=== PATIENT | male | born 1960 | race Caucasian/White ===

== ENCOUNTER 2019-08-01 20:06 | Emergency (ER) | payer OTHER, SELFPAY ==
--- NOTE | ~2019-08-01 | CT_ITS ---
EXAMINATION: CT brain wo con EXAM DATE: 08/01/2019 20:25 INDICATION: Fall. Right pupil dilated. TECHNIQUE: Spiral CT of the head was performed without contrast. Axial, coronal and sagittal images were reviewed. The dose-length product (DLP) for this examination was 605.33 mGy-cm. The exposure w as tailored according to patient size, and iterative reconstruction (ASIR) was used as additional dos e reduction technique. There is no prior study for comparison. FINDINGS: There is a hemorrhage in the middle of the yoav measuring 2.3 x 1.4 cm. No subarachnoid ext ension or hydrocephalus. No evidence of intraparenchymal brain mass lesion. No evidence of acute inf arction. There is no mass effect or midline shift. The ventricles are normal in size. There are no extra-axial collections. There are no acute calvarial fractures. The orbits are unremarkable. Ther e is large left frontal scalp hematoma. The visualized sinuses and mastoid air cells are well aerated . IMPRESSION: 1. Acute yoav hemorrhage. 2. Large left frontal scalp hematoma without underlying fracture. I discussed acute pontine hemorrhage with Jessika Petersen MD at 08/01/2019 20:21 SHANK PINNER. Reviewed, dictated and finalized at location A. K PINNER
--- NOTE | ~2019-08-01 | XR_ITS ---
EXAMINATION: XR chest ET placement EXAM DATE: 08/01/2019 20:59 INDICATION: Endotracheal tube placement. Pontine hemorrhage. TECHNIQUE: Portable AP frontal chest x-ray was obtained. There is no prior study for comparison. FINDINGS: Endotracheal tube tip is 3-4 centimeters above the yola (ideal range is between 2 to 5 cm ). Mild cardiomegaly and pulmonary vascular congestion. No confluent consolidation, pneumothorax or pleural effusion suspected. There are no osseous abnormalities identified. IMPRESSION: 1. ET tube in position. 2. Cardiomegaly, congestion. Reviewed, dictated and finalized at location A. SUIT GLUER
--- NOTE | 2019-08-01 20:07 | ED_ITS ---
I attest that this documentation has been prepared under the direction and in the presence of Jessika Petersen MD. 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 Per police[place] EMS for help of his sx. Pt pulled his van over on the side of the road and got out of his van. Pt slammed his head onto the pavement and he had his entire body length on the road. Pt's states the pt has a hx of CVA. Pt denies EtOH usage and drug usage. Pt was by himself whenever his sx started. Pt's spouse denies the pt being on anticoagulants. HPI is limited due to pt's clinical condition. complaint: suspected CVA [facility] Past Medical History Medical History (Updated 08/01/19 @ 20:24 by Lin Salazar) CVA (cerebrovascular accident) HTN (hypertension) Hyperlipidemia Surgical History Surgical History (Updated 08/01/19 @ 20:24 by Lin Salazar) No history of previous surgery Exam Cardio: Rate: regular rate Rhythm: regular rhythm Neuro: Other: Pt is able to move his right side with normal strength. Pt is able to lift side with gravity, but the left side is weaker.
--- NOTE | 2019-08-01 20:15 | ECG_ITS ---
Measurements Intervals [place] Rate: 65 P: 13 CO: 160 QRS: -17 QRSD: 137 T: 58 QT: 457 QTc: 476 Interpretive Statements SINUS RHYTHM WITH SINUS ARRHYTHMIA ATRIAL PREMATURE COMPLEX RIGHT BUNDLE BRANCH BLOCK BASELINE ARTIFACT- I, II, III, AVR, AVL, AVF ABNORMAL ECG Electronically Signed On 08-02-2019 6:58:43 COMMERCIAL MANAGEMENT ACCOUNTANT by Seymour Harris D.O.
[2019-08-01 20:18] VITALS: BP 203/113; PULSE 69; RESP 20; TEMP 36.7; O2SAT 98
[2019-08-01 20:22] VITALS: BP 203/113; PULSE 69; RESP 17; O2SAT 98
[2019-08-01 20:28] LABS: Basophils Absolute Auto 0.1 K/mm3 (0.0-0.1); Basophils Percent Auto 0.7 % (0.2-1.2); Eosinophils Absolute Auto 0.3 K/mm3 (0-0.3); Eosinophils Percent Auto 3.8 % (0-4.4); Hemoglobin 14.8 g/dL (14.0-18.0); Immature Granulocyte Absolute 0.02 K/mm3 (0.00-0.031); Immature Granulocyte Percent A 0.3 % (0-0.5); Lymphocytes Absolute Auto 2.07 K/mm3 (0.9-3.2); Lymphocytes Percent Auto 28.3 % (18.3-44.2); Mean Corpuscular HGB Conc 32.9 g/dl (32-36); Mean Corpuscular Hemoglobin 29.3 pg (26-34); Mean Corpuscular Volume 89.1 fl (80-100); Mean Platelet Volume 12.1 fl (7.4-10.4); Monocytes Absolute Auto 0.7 K/mm3 (0.1-0.6); Monocytes Percent Auto 9.4 % (2.6-8.5); Neutrophils Absolute Auto 4.2 K/mm3 (1.3-6.7); Neutrophils Percent Auto 57.5 % (45.5-73.1); Platelet Count Result 166 k/mm3 (150-375); Red Blood Count 5.05 M/mm3 (4.6-6.20); Red Cell Distribution Width 12.9 % (11.5-14.5); White Blood Count 7.3 K/mm3 (4.5-10.0)
--- NOTE | 2019-08-01 20:29 | PC.NURSE ---
Per patient , patient has no known drug allergies.
[2019-08-01] MEDS: niCARdipine 20 MG/200 ML 20 MG/200 ML BAG 50 MG IV CONT (20:32)
[2019-08-01 20:38] LABS: INR 0.9; Prothrombin Time 12.2 Seconds (11.1-14.7)
--- NOTE | 2019-08-01 20:38 | PC.NURSE ---
EDP Geldmacher in room at this time for intubation. 30mg Etomidate, 150mg succinylcholine per EDP Geldmacher being pushed at this time for rapid intubation. 3 - 30 mg Etomidate given 2044 - 150 mg succinylcholine given Size 8 ETT placed by EDP Geldmacher 24 at the lip C-collar still in place.
[2019-08-01 20:39] LABS: Partial Thromboplastin Time 25.6 SECONDS (22.3-36.8)
--- NOTE | 2019-08-01 20:39 | ED.NEUROSD ---
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 Per police[place] 911 whenever his sx started. Pt pulled his van over on the side of the road and he got out of his van. Pt fell flat on his face and hit his head onto the pavement. Pt had his entire body length on the road. Pt's states the pt has a hx of CVA. Police on scene did not note any evidence of drug or alcohol use or any other unusual circumstances. Pt was by himself whenever his sx started. Pt's spouse denies the pt being on anticoagulants. HPI is limited due to pt's clinical condition. Onset (ago): minute(s) On Anticoagulants: No Associated symptoms: other (limited due to pt's clinical condition) Related Data Allergies Allergy/AdvReac Type Severity Reaction Status Date / Time No Known Allergies Allergy Verified 08/01/19 20:34 Review of Systems Review of Systems: ROS unobtainable: unobtainable due to mental condition PMFSH Past Medical History Medical History (Updated 08/01/19 @ 20:57 by Jessika Petersen MD) CVA (cerebrovascular accident) HTN (hypertension) Hyperlipidemia Surgical History Surgical History (Updated 08/01/19 @ 20:54 by Lin Salazar) Surgical history unknown Social History Social History (Updated 08/01/19 @ 20:53 by Lin Salazar) Smoking status: Unknown if ever smoked Alcohol intake: never Substance use: never Exam Const: General: cooperative, alert and ill appearing Nutritional Appearance: well nourished Limitations: physical limitations (Slurred speech) HENMT: Head: hematoma left frontal Mouth: Yes lip normal and Yes moist mucous membranes Throat: posterior oropharynx normal Resp: Effort & Inspection: normal respiratory effort Auscultation: clear to auscultation bilaterally Cardio: Rate: regular rate Rhythm: regular rhythm GI: GI Palp: Yes Soft to palpation and No Tenderness to palpation present (GI) Auscultation: normal bowel sounds Back/Spine/Pelvis: Cervical Spine: collar present Skin: General skin exam: normal color Neuro: General: tone normal and moves all extremities Cranial nerves: Yes Equal, round and reactive pupils present and Yes Bilaterally intact EOM present Speech: Abnormal speech present garbled and slurred and No Expressive aphasia present Motor exam (neuro): Normal motor muscle tone present throughout, Abnormal motor strength present and Pronator motor function present pronator drift of left upper extremity Other: Pt is able to move his right side with normal strength. Pt is able to lift side with gravity, but the left side is weaker. Extrem: General: normal to inspection, full ROM and no clubbing, cyanosis or edema Psych: Mental Status: mental status grossly normal Affect: normal affect Attitude: cooperative Course Course Emergency Course: Patient presents to the emergency department as a stroke alert with additional head trauma noted. Patient with findings of intracranial hemorrhage in the yoav. Given the size and location of the hemorrhage, patient was intubated for airway protection due to high risk of decompensation during ground transport. Aeromedical services not flying due to inclement weather. Patient significantly hypertensive on arrival. Nicardipine drip initiated and being titrated towards a goal of 140 systolic. Patient initially given etomidate and succinylcholine for RSI. Patient subsequently given 100 mcg of fentanyl and 2 mg of Versed and started on propofol drip for sedation. Consultations Consultation #1: Discussed case with Dr. Aguero ([facility] Stroke Team). Accepts transfer. Request pt be sent to the ED. Date: 08/01
[2019-08-01 20:41] LABS: Alanine Aminotransferase 33 U/L (4-50); Albumin Level 4.2 g/dL (3.5-5.1); Alkaline Phosphatase 62 U/L (38-126); Aspartate Amino Transferase 32 U/L (17-59); Bilirubin,Total 0.7 mg/dL (0.2-1.3); Blood Urea Nitrogen 14 mg/dL (9-20); Calcium 8.8 mg/dL (8.4-10.2); Carbon Dioxide 30 mmol/L (22-30); Chloride 96 mmol/L (98-107); Estimated CRCL calculation 79 ml/min; Estimated Glomerular Filt Rate > 60; Glucose 111 mg/dL (75-110); Potassium 2.9 mmol/L (3.4-5.0); Sodium 136 mmol/L (137-145)
--- NOTE | 2019-08-01 20:41 | PC.NURSE ---
Called Wendy to transport patient to [facility]. Declined due to weather. [facility] crew that brought patient in cleared with their dispatch to transport patient to [facility].
[2019-08-01 20:45] VITALS: PULSE 74; RESP 19; O2SAT 98
[2019-08-01 20:46] VITALS: BP 246/164; PULSE 83; RESP 14; O2SAT 93
--- NOTE | 2019-08-01 20:48 | PC.NURSE ---
Per EDP Geldmacher, increase Cardene to 7.5mg.
[2019-08-01 20:54] VITALS: BP 168/99; PULSE 81; RESP 14; O2SAT 98
--- NOTE | 2019-08-01 20:57 | PC.NURSE ---
2053 2 mg IVP versed administered, 100 mcg Fentanyl IVP, 5 mcg/min of propofol running IV drip per PAULIE EDMeredith Contrerasr
[2019-08-01 21:01] LABS: Add Urine Microscopic? YES; Appearance Urine Clear (Clear); Bacteria Urine Trace /hpf; Bilirubin Urine Negative (Negative); Blood Urine 1+ (Negative); Color Urine Colorless (Yellow); Glucose Urine UA Negative (Negative); Ketones Urine Negative (Negative); Leukocyte Esterase Ur Negative LEU/UL (Negative); Nitrate Urine Negative (Negative); Protein Urine 2+ mg/dL (Negative); Specific Grav Ur 1.008 (1.001-1.035); Squamous Epithelial Cell Urine Rare /hpf (Few); Urobilinogen Urine Negative mg/dL (<2.0)
--- NOTE | 2019-08-01 23:00 | PC.NURSE ---
Per verbal order read-back via EDP Geldmacher, give 40mg Propofol bolus PRN by titrating pump while in route to [facility] to maintain sedation while patient is intubated. Patient began to breathe against tube, move extremities, reach for tube, and try and sit up. While in route administered via pump: 0 - 40mg Propofol given by pump 2132 - 40mg Propofol given by pump
--- NOTE | 2019-08-01 23:00 | PC.NURSE ---
Per verbal order read-back by EDP Trinity, increase Cardene drip 2.5mg/hr Q15 minutes to maintain blood pressure less than systolic of 140. Drip titrated to 12.5mg/hr upon arrival to [facility] ED.
== END 2019-08-01 21:08 | disposition short-term general hospital (02) ==
PROVIDERS: Emergency Provider Emergency Medicine
DX: I61.3 Nontraumatic intracerebral hemorrhage in brain stem (principal); I16.0 Hypertensive urgency; S00.03XA Contusion of scalp, initial encounter; E78.5 Hyperlipidemia, unspecified; I49.1 Atrial premature depolarization; I45.10 Unspecified right bundle-branch block; I51.7 Cardiomegaly; W18.39XA Other fall on same level, initial encounter
CPT/HCPCS: 31500; 36415; 51702; 70450; 80053; 81001; 85025; 85610; 85730; 93005; 96365; 99291; J2250; J2704; J3010

== ENCOUNTER 2019-12-05 12:55 | Outpatient (RCR) | payer OTHER, SELFPAY ==
[2019-12-05 13:00] VITALS: BMI 26.2
== END 2020-02-05 15:03 | disposition home or self-care (01) ==
LOC: ANHWOC 12:55
PROVIDERS: PCP Family Medicine; Visit Provider Family Medicine
DX: L89.329 Pressure ulcer of left buttock, unspecified stage (principal)
CPT/HCPCS: 99212; G0463

== ENCOUNTER 2020-01-07 13:23 | Outpatient (CLI) | payer OTHER, SELFPAY ==
--- NOTE | ~2020-01-07 | XR_ITS ---
MODIFIED ESOPHAGRAM HISTORY: Dysphagia following nontraumatic intracerebral hemorrhage. TECHNIQUE: Modified barium esophagram was performed on 01/07/2020. I administered fluoroscopy and perf ormed the exam with speech pathologist. Patient was seated for lateral fluoroscopic imaging for eliazar stion of thin liquids, pudding, solids and quantified amounts, followed by thin liquids in uncontroll ed amounts. This was recorded on tape. A single fluoroscopic spot image was also recorded. The DAP fo r this procedure was 1.87 Gycm2. The amount of fluoroscopy time used during this procedure was 2.6 mi nutes. FINDINGS: Oral stage: Premature spillage with uncoordinated lingual movement. Pharyngeal stage: Reduced laryngeal elevation and adduction with laryngeal penetration and aspiration which elicited a cough reflex. Trace residue at the piriform sinus. Cervical/esophageal stage: Adequate function. IMPRESSION: Oral and pharyngeal dysphagia with laryngeal penetration and aspiration. Please correlat e with speech pathologist findings and specific feeding recommendations. Reviewed, dictated and finalized at location A. IMPRESSION: Oral and pharyngeal dysphagia with laryngeal penetration and aspira tion. Please correlate with speech pathologist findings and specific feeding r ecommendations.
--- NOTE | 2020-01-07 15:01 | STOPEVAL ---
Modified Barium Swallow: Thank you for referring Humberto Rosenthal to [facility]. Attending Provider: DO SUMA Colunga Outpatient Evaluation Start: 01/07/20 14:49 Freq: Status: Active Protocol: Document 01/07/20 14:49 BECHERERT (Rec: 01/07/20 15:00 BECHERERT [email or web address]) Therapy Assessment Status Assessment Status Assessment Status Evaluation Outpatient Past Medical History Past Medical History Source of Past Medical History Family/Significant Other Neurological History Hx Cerebrovascular Accident (CVA) Yes: left side and brainstem Cardiovascular History Hx Hypercholesterolemia Yes Hx Hypertension Yes Respiratory History Hx Respiratory Disorders No Significant History Gastrointestinal History Hx Other Gastrointestinal Disorders Yes: incontinence from stroke Genitourinary History Hx Other Genitourinary Disorders Yes: incontinence from stroke Musculoskeletal History Hx Other Musculoskeletal Disorders Yes: from stroke Hematological History Hx Hematological Disorders No Significant History Endocrine History Hx Endocrine Disorders No Significant History HEENT History Hx HEENT Disorders No Significant History Integumentary History Hx Skin Disorders No Significant History Reproductive History Hx Reproductive Disorders No Significant History Psychosocial History Hx Psychiatric Disorders No Significant History Pain History History of Any Previous or Ongoing No Significant History Instance of Pain Anesthesia History Hx Anesthesia Reactions No Significant History Pain Assessment Timing of Pain Assessment Timing of Pain Assessment Assessment Self Report Self Report Pain Level 0 Pain Score Pain Score 0: Self Report Modified Barium Swallow Evaluation Recent Swallowing History Reports Dysphagia Yes Onset of Dysphagia after CVA August 01, 2019 History of Related Medical Diagnosis CVA Other Factors Impacting Dysphagia Neurological Impairment Reported Difficult Consistencies Thin Liquids,Solids Intake Method Prior to Swallow Oral Evaluation Diet Prior to Swallow Evaluation Minced and Moist, Level 5 Liquid Consistency Prior to Swallow Mildly Thick (2) Evaluation Consistency Solid Consistency Method of Presentation Spoon Oral Preparatory Symptoms Unable to Form Bolus Oral Preparatory Phase Comments difficulty formulating bolus Oral Phase Symptoms Uncontrolled Bolus Pharyngeal Phase Symptoms Laryngeal Penetration,Reduced Laryngeal Elevation Severity of Vallecular Residue None - 0% No Residue Severity of Pyriform Sinus Residue Trace - 1-5 % Trace Coating of the Mucosa 8 Point Laryngeal Penetration-Aspiration Material Enters Airway Below Scale Vocal Co
== END 2020-01-07 13:24 | disposition home or self-care (01) ==
LOC: ANHIMG 13:26
PROVIDERS: PCP Family Medicine; Visit Provider Family Medicine
DX: I61.3 Nontraumatic intracerebral hemorrhage in brain stem (principal); I69.191 Dysphagia following nontraumatic intracerebral hemorrhage
CPT/HCPCS: 92611

== ENCOUNTER 2020-04-15 13:21 | Outpatient (CLI) | payer OTHER, SELFPAY ==
--- NOTE | ~2020-04-15 | XR_ITS ---
MODIFIED ESOPHAGRAM HISTORY: Cerebral infarction. TECHNIQUE: Modified barium esophagram was performed on 04/15/2020. I administered fluoroscopy and perf ormed the exam with speech pathologist. Patient was seated for lateral fluoroscopic imaging for eliazar stion of thin liquids, pudding, solids and quantified amounts, followed by thin liquids in uncontroll ed amounts. This was recorded on tape. A single fluoroscopic spot image was also recorded. The DAP fo r this procedure was 2.2 Gycm2. The amount of fluoroscopy time used during this procedure was 2.8 min utes. FINDINGS: Oral stage: Slow mastication with leakage from the mouth and premature spillage to the piriform sinus . Pharyngeal stage: Reduced laryngeal elevation and abduction with both laryngeal penetration and aspir ation with thin and to lesser degree with nectar thick liquids. Cervical/esophageal stage: Adequate function. IMPRESSION: Oral and pharyngeal dysphagia with repeated aspiration with thin liquids. Please correla te with speech pathologist findings and specific feeding recommendations. Reviewed, dictated and finalized at location A. IMPRESSION: Oral and pharyngeal dysphagia with repeated aspiration with thin li quids. Please correlate with speech pathologist findings and specific feeding recommendations.
--- NOTE | 2020-04-16 14:39 | STOPEVAL ---
MODIFIED BARIUM SWALLOW: Thank you for referring Humberto Rosenthal to [facility] Attending Provider: DO SUMA Colunga Outpatient Evaluation ([facility]) Start: 04/15/20 16:46 Freq: Status: Discharge Protocol: Document 04/15/20 16:47 BECHERERT (Rec: 04/15/20 16:47 BECHERERT [email or web address]) Therapy Assessment Status Assessment Status Assessment Status Evaluation Outpatient Past Medical History Neurological History Hx Cerebrovascular Accident (CVA) Yes: left side and brainstem Cardiovascular History Hx Hypercholesterolemia Yes Hx Hypertension Yes Respiratory History Hx Respiratory Disorders No Significant History Gastrointestinal History Hx Other Gastrointestinal Disorders Yes: incontinence from stroke Genitourinary History Hx Other Genitourinary Disorders Yes: incontinence from stroke Musculoskeletal History Hx Other Musculoskeletal Disorders Yes: from stroke Hematological History Hx Hematological Disorders No Significant History Endocrine History Hx Endocrine Disorders No Significant History HEENT History Hx HEENT Disorders No Significant History Integumentary History Hx Skin Disorders No Significant History Reproductive History Hx Reproductive Disorders No Significant History Psychosocial History Hx Psychiatric Disorders No Significant History Pain History History of Any Previous or Ongoing No Significant History Instance of Pain Anesthesia History Hx Anesthesia Reactions No Significant History Prior Level of Function Home Setting Home Type House Living Situation With Spouse Mobility Assistive Devices (Used Last 3 Wheelchair, Manual Months) Prior Swallow Level Prior Diet Minced and Moist (Level 5 Diet ) Prior Liquid Consistency Mildly Thick (Level 2 Diet) Pain Assessment Timing of Pain Assessment Timing of Pain Assessment Assessment Self Report Self Report Pain Level 0 Pain Score Pain Score 0: Self Report Modified Barium Swallow Evaluation Recent Swallowing History Reports Dysphagia Yes Onset of Dysphagia since CVA in July 2019 History of Dysphagia No: not prior to CVA History of Related Medical Diagnosis CVA Reported Difficult Consistencies Thin Liquids,Solids Intake Method Prior to Swallow Oral Evaluation Diet Prior to Swallow Evaluation Minced and Moist, Level 5 Liquid Consistency Prior to Swallow Mildly Thick (2) Evaluation Consistency Mildly Thick Method of Presentation Spoon Oral Preparatory Symptoms Within Functional Limits Oral Phase Symptoms Within Functional Limits Pharyngeal Phase Symptoms Laryngeal Penetration,Reduced Laryngeal Elevation Severi
== END 2020-04-15 13:22 | disposition home or self-care (01) ==
PROVIDERS: PCP Family Medicine; Visit Provider Family Medicine
DX: I63.9 Cerebral infarction, unspecified (principal)
CPT/HCPCS: 92611

== ENCOUNTER 2020-09-15 09:09 | Outpatient (CLI) | payer OTHER, SELFPAY ==
--- NOTE | 2020-09-16 10:59 | WPDHOMESLEEP ---
Sleep Study - Home Unattended Date of Study: 09/15/20 Ordering Provider: Jose Josue DO Interpreting Provider: Meaghan Berry MD Home Sleep Study Type: Apnea Link Air Height: 1.8 m Weight: 77.111 kg Body Mass Index: 23.7 Neck Circumference (inches): 17.25 [place]: 6 Reason for Sleep Study Loud snoring, high blood pressure in the morning Hypertension, massive stroke Jul 2019, left hemiparesis Sleep History Humberto Rosenthal is a 60-year-old male who frequently snores loudly. He does not awaken at night with heartburn, belching or coughing. He does not awaken from sleep feeling short of breath. 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 He frequently has trouble sleep with a cold. He rarely gasp for breath at night. He does not have breathing problems at night observed by others. He does not sweat excessively at night or notices his heart pounding or beating irregularly night. He rarely falls asleep during the day, never involuntarily and never while driving. He does not have loss of muscle tone was strong emotion. He does not have daytime difficulties due to excessive sleepiness as he is currently disabled. He does not feel paralyzed on waking or falling asleep and does not have vivid dreamlike scenes upon awakening or falling asleep. He does not have nightmares. He does not remember his dreams. He occasionally has racing thoughts. He occasionally feels sad and depressed. He does not have anxiety. He does not have muscular tension. He rarely notices parts of his body jerking. He does not kick at night. He does not have crawling and aching feelings in his legs. He denies having any kind of leg pain at night. He does not have morning jaw pain. He does not grind his teeth during sleep. He is not bothered by pain during the day or awakened by pain at night. He rarely wakes up feeling stiff in the morning never with sore achy muscles are pain in the neck and spine. Normal bedtime is 11:30 p.m. taking 1/2 hour to fall asleep typically waking twice at night. While awake he tries to return to sleep. It may take an hour to return to sleep. His episodes of waking occur in the middle of the night. He wakes the morning at 6:00 a.m.. Weekend sleep is similar going to bed at 11:30 p.m. waking at 7 in the morning. He estimates getting 5-6 hours of sleep at night. He does not generally take naps in the afternoon or evening. A short nap may be refreshing. He frequently awakens feeling refreshed. He rarely has morning headaches. He rarely has heartburn at night. Habits: Never smoked tobacco. Caffeine 10 oz per day. No alcohol or recreational drugs. [facility] Past Medical History Medical History (Updated 09/16/20 @ 11:12 by Meaghan Berry MD) CVA (cerebrovascular accident) Gastrojejunostomy tube dislodgement Hemiparesis affecting left side as late effect of cerebrovascular accident HTN (hypertension) Hyperlipidemia Left-sided weakness (~11/2019) Surgical History Surgical History (Updated 09/16/20 @ 11:09 by Meaghan Berry MD) H/O hernia repair Family History Family History Father Hypertension Social History Social History Smoking status: Never smoker Second hand tobacco smoke exposure: No Alcohol intake: current Substance use: never Gender identity (if verbalized by the patient): Male Medications Home Medications Medication Instructions Recorded Confirmed Type cholecalciferol (vitamin D3) 1,250 1,250 mcg PO MONTHLY 11/18/19 12/05/19 History mcg (50,000 unit) tablet aspirin 81 mg tablet,delayed 81 mg PO DAILY 12/23/19 History release hcemtfwe-eynnwiwr-zmfdf acid 400 tablet PO DAILY tablet 12/23/19 History mcg-vit K 20 mcg-lycop 300 mcg tablet buspirone 5 mg tablet 5 mg PO TID #270 tablet 05/11/20 Rx pantoprazole 40 mg tablet,delayed
[2020-09-16 11:01] VITALS: BMI 23.7
== END 2020-09-15 09:10 | disposition home or self-care (01) ==
LOC: ANHCSM 09:10
PROVIDERS: PCP Family Medicine; Visit Provider Family Medicine
DX: G47.10 Hypersomnia, unspecified (principal); G47.33 Obstructive sleep apnea (adult) (pediatric)
CPT/HCPCS: 95806

== ENCOUNTER 2021-08-03 11:39 | Outpatient (CLI) | payer OTHER, SELFPAY ==
[2021-08-03 20:12] LABS: Basophils Absolute Auto 0.1 K/mm3 (0.0-0.1); Eosinophils Absolute Auto 0.4 K/mm3 (0-0.3); Eosinophils Percent Auto 4.9 % (0-4.4); Hematocrit 50.5 % (42.0-52.0); Hemoglobin 15.8 g/dL (14.0-18.0); Immature Granulocyte Absolute 0.04 K/mm3 (0.00-0.031); Immature Granulocyte Percent A 0.5 % (0-0.5); Immature Platelet Fraction Pct 15.4 % (0.9-11.2); Lymphocytes Absolute Auto 1.25 K/mm3 (0.9-3.2); Lymphocytes Percent Auto 15.4 % (18.3-44.2); Mean Corpuscular HGB Conc 31.3 g/dl (32-36); Mean Corpuscular Hemoglobin 29.8 pg (26-34); Mean Corpuscular Volume 95.1 fl (80-100); Mean Platelet Volume 13.7 fl (7.4-10.4); Monocytes Absolute Auto 0.8 K/mm3 (0.1-0.6); Neutrophils Absolute Auto 5.6 K/mm3 (1.3-6.7); Neutrophils Percent Auto 68.2 % (45.5-73.1); Platelet Count Result 152 k/mm3 (150-375); Red Blood Count 5.31 M/mm3 (4.6-6.20); White Blood Count 8.1 K/mm3 (4.5-10.0)
[2021-08-03 20:26] LABS: Alanine Aminotransferase 43 U/L (4-50); Albumin Level 4.1 g/dL (3.5-5.1); Alkaline Phosphatase 70 U/L (38-126); Anion Gap 7 mmol/L (8-16); Aspartate Amino Transferase 35 U/L (17-59); Bilirubin,Total 0.6 mg/dL (0.2-1.3); Blood Urea Nitrogen 17 mg/dL (9-20); Calcium 9.6 mg/dL (8.4-10.2); Carbon Dioxide 33 mmol/L (22-30); Chloride 102 mmol/L (98-107); Cholesterol 201 mg/dL (0-200); Estimated Glomerular Filt Rate > 60; Glucose 115 mg/dL (65-110); HDL Direct 35 mg/dL; Potassium 4.3 mmol/L (3.4-5.0); Sodium 142 mmol/L (137-145); Triglycerides 310 mg/dL (<150)
[2021-08-03 20:29] LABS: Platelet Estimate Adequate (Adequate)
[2021-08-03 20:37] LABS: LDL Cholesterol Direct 128 mg/dL
[2021-08-03 20:51] LABS: Hemoglobin A1C 5.1 % (<5.7)
[2021-08-03 20:56] LABS: Prostate Specific Antigen 7.9 ng/mL (< OR = 4.0)
== END 2021-08-03 11:40 | disposition home or self-care (01) ==
LOC: ANHBWCLAB 11:41
PROVIDERS: PCP Family Medicine; Visit Provider Family Medicine
DX: E11.9 Type 2 diabetes mellitus without complications (principal); G47.33 Obstructive sleep apnea (adult) (pediatric); I69.354 Hemiplegia and hemiparesis following cerebral infarction affecting left non-dominant side; R79.89 Other specified abnormal findings of blood chemistry; G47.10 Hypersomnia, unspecified; R53.1 Weakness; I10 Essential (primary) hypertension
CPT/HCPCS: 36415; 80053; 80061; 82306; 83036; 84153; 85025; 85055; G0103

== ENCOUNTER 2021-11-17 11:41 | Outpatient (CLI) | payer OTHER, SELFPAY ==
[2021-11-18 14:24] LABS: Alanine Aminotransferase 38 U/L (6-50); Albumin Level 4.1 g/dL (3.5-5.1); Alkaline Phosphatase 76 U/L (38-126); Anion Gap 7 mmol/L (8-16); Aspartate Amino Transferase 31 U/L (17-59); Bilirubin,Total 0.6 mg/dL (0.2-1.3); Blood Urea Nitrogen 18 mg/dL (9-20); Calcium 9.2 mg/dL (8.4-10.2); Carbon Dioxide 31 mmol/L (22-30); Chloride 102 mmol/L (98-107); Estimated Glomerular Filt Rate > 60; Glucose 99 mg/dL (65-110); Potassium 4.1 mmol/L (3.4-5.0); Sodium 140 mmol/L (137-145)
[2021-11-18 14:43] LABS: NT Pro B Type Natriuretic Pept 70 pg/mL (5-100)
[2021-11-18 15:50] LABS: Prostate Specific Antigen 8.3 ng/mL (< OR = 4.0)
== END 2021-11-17 11:42 | disposition home or self-care (01) ==
PROVIDERS: PCP Family Medicine; Visit Provider Family Medicine
DX: R97.20 Elevated prostate specific antigen [PSA] (principal); I10 Essential (primary) hypertension; R60.9 Edema, unspecified; Z12.5 Encounter for screening for malignant neoplasm of prostate
CPT/HCPCS: 36415; 80053; 83880; 84153; G0103

== ENCOUNTER 2022-03-07 07:21 | Outpatient (RCR) | payer MEDICARE, SELFPAY | END 2022-05-09 08:08 | disposition home or self-care (01) | LOC: ANHWOC 07:21 | PROVIDERS: PCP Family Medicine; Visit Provider Family Medicine | DX: L89.623 Pressure ulcer of left heel, stage 3 (principal) | CPT/HCPCS: 99212; A9270; G0463 ==

== ENCOUNTER 2022-04-04 12:12 | Emergency (ER) | payer MEDICARE, OTHER, SELFPAY ==
[2022-04-04 12:36] VITALS: BP 133/70; PULSE 58; RESP 20; TEMP 36.9; O2SAT 96
--- NOTE | 2022-04-04 13:55 | ED.GENADULT ---
HPI - General Adult General Chief complaint: Ear Stated complaint: trouble hearing out of ears Time Seen by Provider: 04/04/22 13:05 Source: patient, family, RN notes reviewed and old records reviewed Mode of arrival: ambulatory Limitations: language barrier (patient unable to speak well post CVA) History of Present Illness HPI narrative: 61-year-old male wheelchair-bound accompanied by presents to express care with complaints of inability to hear and ears feeling plugged for one week duration. reports that she called his PCP and was instructed to use Debrox and they did without improvement. Patient here today for cerumen impactions to bilateral ears causing decreased hearing. Patient has had previous CVA and is wheelchair bound with and daughter as caretakers. MD complaint: Decreased hearing Onset (ago): week(s) (1) Treatments prior to arrival: other (debrox) Related Data Home Medications Medication Instructions Recorded Confirmed cholecalciferol (vitamin D3) 1,250 1,250 mcg PO MONTHLY 11/18/19 04/04/22 mcg (50,000 unit) tablet (Dialyvite Vitamin D3 Max) aspirin 81 mg tablet,delayed 81 mg PO DAILY 12/23/19 04/04/22 release (Adult Low Dose Aspirin) bectishq-maiqceba-nfmma acid 400 1 tablet PO DAILY 12/23/19 04/04/22 mcg-vit K 20 mcg-lycop 300 mcg tablet (Men's Multivitamin) amlodipine 10 mg tablet mg 04/04/22 Allergies Allergy/AdvReac Type Severity Reaction Status Date / Time No Known Allergies Allergy Verified 04/04/22 12:56 Review of Systems Review of Systems: CONSTITUTIONAL: Denies fever, chills, or sweats. EYES: Denies visual changes, redness, or discharge. ENT: Denies rhinorrhea, congestion, sore throat, or otalgia. Decreased hearing CARDIOVASCULAR: Denies chest pain, palpitations, or edema. RESPIRATORY: Denies cough or dyspnea. GASTROINTESTINAL: Denies abdominal pain, nausea, vomiting, or diarrhea. GENITOURINARY: Denies dysuria or hematuria. Has external catheter SKIN: Denies rash or itching. MUSCULOSKELETAL: Denies back pain, joint pain, or myalgia, patient is wheelchair-bound with left-sided weakness related to previous CVA NEUROLOGIC: Denies headache, numbness, or weakness. PSYCHIATRIC: History of anxiety or depression. All systems reviewed & are unremarkable except as noted in HPI and below PMFSH Past Medical History Medical History CVA (cerebrovascular accident) Gastrojejunostomy tube dislodgement Hemiparesis affecting left side as late effect of cerebrovascular accident HTN (hypertension) Hyperlipidemia Left-sided weakness (~11/2019) Surgical History Surgical History H/O hernia repair Family History Family History Father Hypertension Social History Social History (Updated 04/06/22 @ 07:31 by Abigail Mejias NP) Smoking status: Never smoker Second hand tobacco smoke exposure: No Alcohol intake: unknown Substance use: never Living arrangements: with family Occupation/Education: other Additional occupation/education comments: Disabled Gender identity (if verbalized by the patient): Male Comments At time of signature, agree with nursing past medical, surgical, social and family history. There is no relevant family history pertinent to the presenting complaint Exam Narrative: GENERAL: Chronic ill-appearing, well-nourished, and in no acute distress. HEAD: Normocephalic, atraumatic. EYES: PERRLA and EOMI. ENT: Nares clear, no rhinorrhea or epistaxis. Mucous membranes moist. TMs bilaterally impacted with cerumen, see procedure note, TMs normal with good light reflex after cleansing, right ear canal red and excoriated no drainage noted left ear canal normal, throat pink with no lesions or swelling NECK: Supple. No lymphadenopathy CHEST: Clear to auscultation. No respirator
== END 2022-04-04 14:11 | disposition home or self-care (01) ==
PROVIDERS: Emergency Provider Registered Nurse; PCP Family Medicine
DX: H60.91 Unspecified otitis externa, right ear (principal); H61.23 Impacted cerumen, bilateral; I10 Essential (primary) hypertension; E78.5 Hyperlipidemia, unspecified; I69.354 Hemiplegia and hemiparesis following cerebral infarction affecting left non-dominant side; Z79.82 Long term (current) use of aspirin
CPT/HCPCS: 69209; 99213; G0463

== ENCOUNTER 2022-05-31 14:37 | Outpatient (CLI) | payer MEDICARE, SELFPAY ==
[2022-05-31 19:42] LABS: Basophils Absolute Auto 0.1 K/mm3 (0.0-0.1); Basophils Percent Auto 0.8 % (0.2-1.2); Eosinophils Absolute Auto 0.6 K/mm3 (0-0.3); Eosinophils Percent Auto 7.2 % (0-4.4); Hematocrit 49.6 % (42.0-52.0); Hemoglobin 15.3 g/dL (14.0-18.0); Immature Granulocyte Absolute 0.05 K/mm3 (0.00-0.031); Immature Granulocyte Percent A 0.6 % (0-0.5); Lymphocytes Absolute Auto 1.31 K/mm3 (0.9-3.2); Lymphocytes Percent Auto 14.7 % (18.3-44.2); Mean Corpuscular HGB Conc 30.8 g/dl (32-36); Mean Corpuscular Hemoglobin 29.3 pg (26-34); Mean Platelet Volume 12.1 fl (7.4-10.4); Monocytes Percent Auto 11.5 % (2.6-8.5); Neutrophils Absolute Auto 5.8 K/mm3 (1.3-6.7); Neutrophils Percent Auto 65.2 % (45.5-73.1); Platelet Count Result 168 k/mm3 (150-375); Red Blood Count 5.22 M/mm3 (4.6-6.20); Red Cell Distribution Width 15.4 % (11.5-14.5); White Blood Count 8.9 K/mm3 (4.5-10.0)
[2022-05-31 20:16] LABS: Alanine Aminotransferase 41 U/L (6-50); Albumin Level 3.9 g/dL (3.5-5.1); Alkaline Phosphatase 80 U/L (38-126); Anion Gap 9 mmol/L (8-16); Aspartate Amino Transferase 37 U/L (17-59); Bilirubin,Total 0.5 mg/dL (0.2-1.3); Blood Urea Nitrogen 15 mg/dL (9-20); Carbon Dioxide 33 mmol/L (22-30); Chloride 96 mmol/L (98-107); Estimated Glomerular Filt Rate > 60; Glucose 111 mg/dL (65-110); Potassium 3.3 mmol/L (3.4-5.0); Sodium 138 mmol/L (137-145)
== END 2022-05-31 14:38 | disposition home or self-care (01) ==
PROVIDERS: PCP Family Medicine; Visit Provider Family Medicine
DX: I69.354 Hemiplegia and hemiparesis following cerebral infarction affecting left non-dominant side (principal)
CPT/HCPCS: 36415; 80053; 85025

== ENCOUNTER 2024-01-03 10:22 | Outpatient (CLI) | payer MEDICARE, SELFPAY | END 2024-01-03 10:23 | disposition home or self-care (01) | LOC: ANHBWCAUD 10:23 | PROVIDERS: PCP Family Medicine; Visit Provider Family Medicine | DX: H90.42 Sensorineural hearing loss, unilateral, left ear, with unrestricted hearing on the contralateral side (principal); H90.71 Mixed conductive and sensorineural hearing loss, unilateral, right ear, with unrestricted hearing on the contralateral side | CPT/HCPCS: 92557; 92567 ==

== ENCOUNTER 2025-04-11 18:16 | Emergency (ER) | payer MEDICARE, SELFPAY ==
--- OUTSIDE RECORDS SUMMARY | 2025-04-11 18:18 | XMS_ITS | Clinical Summary ---
Author Organization [facility] Address [address] [address] Phone Care Team Providers Care Steam Distribution Supervisor Name Role Phone Anirudh Sands MD Primary Care Provider [phone] Master Hoyt MD Unavailable Tenzin Clements MD Unavailable Allergies No known active allergies Medications ASPIRIN PO Take 81 mg by mouth daily. Active fexofenadine (DANTE) 180 MG Tablet Take 180 mg by mouth daily. Active amLODIPine (NORVASC) 10 MG Tablet Take 10 mg by mouth daily. Active hydroCHLOROthiaz karen 25 MG Tablet Take 25 mg by mouth daily. Active lisinopril (PRINIVIL, ZESTRIL) 40 MG Tablet Take 40 mg by mouth daily. Active venlafaxine (EFFEXOR-XR) 37.5 MG CAPSULE SR 24 HR Take 37.5 mg by mouth daily. Active busPIRone (BUSPAR) 5 MG Tablet Take 5 mg by mouth 3 times daily. Active metoprolol Succinate (TOPROL-XL) 50 MG TABLET SR 24 HR Take 1 Tablet by mouth daily. 90 Tablet 3 Active Additional Information Patient taking differently: 25 mgOral2 TIMES DAILY, Reported on 11/08/2022 furosemide (LASIX) 40 MG Tablet Take 1 Tablet by mouth daily. 90 Tablet 3 Active potassium chloride CR (KLORCON) 10 MEQ Tablet Controlled Release Take 2 Tablets by mouth daily. 90 Tablet 3 Active Vitamin D3 1000 UNIT Tablet Take 4,000 Units by mouth. 0 Active pantoprazole (PROTONIX) 40 MG Pack Take 40 mg by mouth. 0 Active OXYGEN CONCENTRATOR 2 L by Does not apply route. Use as directed Active Active Problems Problem Noted Date Diagnosed Date SOB (shortness of breath) 11/08/2022 Cholecystitis 10/26/2022 Dyslipidemia HTN (hypertension) Cerebral infarction Immunizations Immunization Administration Dates Next Due Tetanus Toxoid, Unspecified Formulation 07/10/18 99 Family History Medical History Relation Name Comments No Known Problems Brother 1 No Known Problems Brother 2 No Known Problems Brother 3 No Known Problems Daughter 1 No Known Problems Daughter 2 Other-comment Father bph Stroke Father Chronic Obstructive Pulmonary Disease Mother No Known Problems Son Relation Name Status Comments Brother 1 Alive Brother 2 Alive Brother 3 Alive Daughter 1 Alive Daughter 2 Alive Father Mother Son Alive Social History Tobacco Use Types Packs/Day Years Used Date Smoking Tobacco: Never Smokeless Tobacco: Never Tobacco Cessation:Counseling Given: Not Answered Alcohol Use Standard Drinks/Week Comments Not Currently 0 (1 standard drink = 0.6 oz pur e alcohol) Sexually Active Control Partners Comments Not Currently Female Sex and Gender Information Value Date Recorded Sex Assigned at Not on file Legal Sex Male 11:51 PM CDT Gender Identity Not on file Sexual Orientation Not on file Last Filed Vital Signs Vital Sign Reading Time Taken Comments Blood Pressure 120/70 04/04/2023 2:05 PM CDT Pulse 75 04/04/2023 2:05 PM CDT Temperature 36 C (96.8 F) 04/04/2023 2:05 PM CDT Respiratory Rate 16 04/04/2023 2:05 PM CDT Oxygen Saturation 92% 04/04/2023 2:05 PM CDT Inhaled Oxygen Concentration - - Weight 113.4 kg (250 lb) 04/04/2023 2:05 PM CDT Height 175.3 cm (5' 9) 04/04/2023 2:05 PM CDT Body Mass Index 36.92 04/04/2023 2:05 PM CDT Plan of Treatment Health Maintenance Due Date Last Done Comments Hepatitis C Virus (HCV) Screening 1961 Cologuard 2006 Colonoscopy 2006 Colorectal Cancer Screening 2006 Immunochemical Fecal Occult Blood 2006 Pneumococcal Immunization (5 0+ years) (1 of 1 - PCV) 2011 Zoster Immunization (2 of 3) 08/12/2021 06/17/2021 Medicare Initial AWV G0438 01/07/2023 Influenza Immunization (#1) 03/10/202504/09, 08/24/2019 SARS-COV-2 Immunization (3 - season) 2025 08/03/2021, 06/29/2021 Respiratory Syncytial Virus (RSV) Immunization (Adult) (1 - 1-dose 75+ series) 2036 PSA Discussion Completed 06/03/2015 DTaP/Tdap/Td Immunization Discontinued 06/17/2021 TdaP Immunization Completed 06/17/2021 Hepatitis B Immunization Aged Out No longer eligible based on patient's age to complete this topic Human Papillomavirus (HPV) Immunization Aged Out No longer eligible based on patient's age to complete this topic Meningococcal Immunization (ACWY) Aged Out No longer eligible based on patient's age to complete this topic Rotavirus Immunization Aged Out No lo nger eligible based on patient's age to complete this topic Procedures Procedure Name Priority Date/Time Associated Diagnosis Comments PSA SCREEN Routine 06/03/2015 9:30 AM RELIEF PILOT Polypharmacy Dyslipidemia Essential hypertension from Last 3 Months or Most Recently Relevant to Health Maintenance Results * PSA SCREEN (06/03/2015 9:30 AM RELIEF PILOT) PSA SCREEN, TOTAL 2.39 0.00 - 4.00 ng/mL 06/03/2015 11:54 AM RELIEF PILOT [facility] Blood specimen (specimen) Venipuncture / Unknown 06/03/2015 9:30 AM RELIEF PILOT 06/03/2015 9:34 AM RELIEF PILOT Narrative [facility] - 06/03/2015 11:54 AM RELIEF PILOT PSA NOTE: The PSA value should be used in conjunction with information available from clinical evaluation and other diagnostic procedures. us Dmitri D Kulkarni DO CHEMISTRY ORDERABLES Final Resul t [facility] [address] [place] [address] from Last 3 Months or Most Recently Relevant to Health Maintenance Insurance MEDICARE C [employer]ET[employer] Advance Directives * Full Code (Latest Code Status on File) Date Activated Date Inactivated Comments 11/11/2022 6:58 AM * Full Code Date Activated Date Inactivated Comments 10/26/2022 9:25 AM 10/31/2022 8:52 PM CPR-Full Zaid atment: FULL ARREST: Attempt Resuscitation/CPR wit intubation and mechanical ventilation. PRE-ARREST: Use entire range of life support measures to stabilize the patient. Care Teams Steam Distribution Supervisor Relationship Specialty Start Date End Date Anirudh Sands MD PCP - General Family Medicine 10/27/22 Master Hoyt MD [address] [address] Consulting Physician Colon and Rectal Surgery 11/01/22 Tenzin Clements MD [address] [place] [phone] Consulting Physician Pulmonary Disease 11/08/22
--- OUTSIDE RECORDS SUMMARY | 2025-04-11 18:18 | XMS_ITS | Clinical Summary ---
Author Organization [facility] Address [address] [place] [id number] Care Team Providers Care Laboratory Animal Caretaker Name Role Phone Unavailable Primary Care Provider Unavailabl e Allergies No known active allergies Medications vitamin D cholecalciferol 25 MCG (1000 UT) tablet Take 4 tablets (4,000 Units total) by mouth daily. 0 0 Active Pantoprazole Sodium 40 MG pack Take 1 packet (40 mg total) by mouth Daily at 6am. 30 each 0 Active amLODIPine (NORVASC) 10 MG tablet Take 1 tablet (10 mg total) by mouth daily. 30 tablet 0 Active metoprolol tartrate (LOPRESSOR) 25 MG tablet 1 tablet (25 mg total) by PO/Per Tube route 2 (two) times a day. 60 tablet 0 Active busPIRone (BUSPAR) 5 MG tablet 1 tablet (5 mg total) by PO/Per Tube route 3 (three) times a day. 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 09/19/2019 Acute kidney failure 09/19/2019 Peritonitis 09/19/2019 H/O: tracheostomy 09/19/2019 Acute respiratory failure with hypoxia 0 Intrapontine hemorrhage 08/01/2019 Immunizations Immunization Administration Dates Next Due Influenza (IM) Preservative Free 08/18/2019(Defe rred: Offered and declined) Influenza, Quadrivalent 09/02/2019(Defer red: Received outside of this facility - Received 08/24/2019) Family History Medical History Relation Name Comments Hypertension Brother Stroke Father COPD Mother Relation Name Status Comments Brother Father Mother Social History Tobacco Use Types Packs/Day Years Used Date Smoking Tobacco: Never Alcohol Use Standard Drinks/Week Comments Yes 1 (1 standard drink = 0.6 oz pur e alcohol) once or twice a month Sex and Gender Information Value Date Recorded Sex Assigned at Not on file Legal Sex Male 3:51 PM EST Gender Identity Not on file Sexual Orientation Not on file Last Filed Vital Signs Vital Sign Reading Time Taken Comments Blood Pressure 157/93 11/14/2019 8:00 AM CDT Pulse 70 11/14/2019 8:00 AM CDT Temperature 36.6 C (97.9 F) 11/14/2019 8:00 AM CDT Respiratory Rate 18 11/14/2019 8:00 AM CDT Oxygen Saturation 97% 11/14/2019 8:00 AM CDT Inhaled Oxygen Concentration - - Weight 73.9 kg (163 lb) 10/30/2019 6:00 AM CDT Height 175.3 cm (5' 9) 09/19/2019 9:28 PM CDT Body Mass Index 24.07 09/19/2019 9:28 PM CDT Plan of Treatment Health Maintenance Due Date Last Done Comments CT Colonography 1961 Colonoscopy 1961 Colorectal Cancer Screening 1961 FIT-DNA (Cologuard) 1961 FIT 1961 FOBT 1961 Sigmoidoscopy 1961 Annual Visit Topic 1962 MMR Vaccines (1 of 1 - Stand kim series) 1962 Hepatitis C Screening 1979 DTaP/Tdap/Td Vaccines (1 - Tdap) 1980 PSA Test 2016 HIB Vaccines Aged Out No longer eligi ble based on patient's age to complete this topic HPV Vaccines Aged Out No longer eligi ble based on patient's age to complete this topic Hepatitis A Vaccines Aged Out No long er eligible based on patient's age to complete this topic Hepatitis B Vaccines Aged Out No long er eligible based on patient's age to complete this topic IPV Vaccines Aged Out No longer eligi ble based on patient's age to complete this topic Meningococcal Vaccine Aged Out No lasha tad eligible based on patient's age to complete this topic Pneumococcal Vaccine: Pediat rics (0 to 5 years) and At-Risk Patients (6 to 64 Years) Aged Out No longer eligible b ased on patient's age to complete this topic Advance Directives * Full Resuscitation (Latest Code Status on File) Date Activated Date Inactivated Comments 09/19/2019 6:12 PM 11/14/2019 2:02 PM * Full Resuscitation Date Activated Date Inactivated Comments 09/19/2019 6:12 PM 09/19/2019 6:12 PM * Full Resuscitation Date Activated Date Inactivated Comments 08/30/2019 4:06 AM 09/19/2019 5:19 PM * Full Resuscitation Date Activated Date Inactivated Comments 08/13/2019 11:13 PM 08/18/2019 8:06 PM
--- OUTSIDE RECORDS SUMMARY | 2025-04-11 18:18 | XMS_ITS | Clinical Summary ---
Author Organization [facility] Address [address] [place] [address] Care Team Providers Care Contact Acid Plant Operator Name Role Phone Unavailable Primary Care Provider Unavailabl e Source Comments [facility],non-owned Affiliates and Associated Physician Practices is amultiple site organization consisting of ambulatory clinics and hospital sitesin [place], [place], [place] and [place]. This disclosure is being madepursuant to the Care Everywhere program and may not contain all information available regarding this patient. Last updated 18.[facility] [employer] Allergies No known active allergies Medications * Be aware that medications may not be up to date on this document. Alwaysverify current medications with the patient. acetaminophen (TYLENOL) 325 MG tablet 2 tablets by Enteral Tube route every 4 hours as needed for Fever Maximum allowable Acetaminophen amount = 4 Grams (4000 mg) / 24 hours. 0 Active albuterol (PROVENTIL;SACHIN TOLIN) (5 MG/ML) 0.5% nebulizer solution Inhale 1 mL by mouth every 6 hours as needed for Shortness of Breath or Wheezing 0 Active heparin 5000 UNIT/ML injection Inject 1 mL subcutaneously every 8 hours 0 Active amLODIPine (NORVASC) 10 MG tablet 1 tablet by Enteral Tube route once daily 0 Active tamsulosin (FLOMAX) 0.4 MG capsule Take 1 capsule by mouth once daily At the same time every day after a meal. 0 Active chlorhexidine (PERIDEX) 0.12 % solution 15 mL by Mouth/Throat route 2 times daily 0 Active famotidine (PEPCID) 20 MG tablet 1 tablet by Enteral Tube route 2 times daily 0 Active artificial tears 1.4 % ophthalmic solution Instill 1 drop into both eyes 4 times daily Active erythromycin (ROMYCIN) 5 MG/GM ophthalmic ointment Instill into both eyes every 8 hours Started on 08/17/2019 Active insulin lispro (HUMALOG) 100 UNIT/ML vial Inject subcutaneously every 6 hours Correction dose insulin Active busPIRone (BUSPAR) 5 MG tablet Take 5 mg by mouth 3 times daily Active albuterol-ipra tropium (DUO-NEB) 0.5-2.5 (3) MG/3ML nebulizer solution Inhale 3 mL by mouth 3 times daily Active HYDROcodone-ac etaminophen (NORCO) 5-325 MG tablet 1 tablet by Enteral Tube route every 4 hours as needed 12 tablet 0 Active hydrALAZINE (APRESOLINE) 25 MG tablet 3 tablets by Enteral Tube route every 8 hours 0 0 Active metoprolol tartrate (LOPRESSOR) 25 MG tablet 1 tablet by Enteral Tube route every 6 hours 0 Active Active Problems Problem Noted Date Diagnosed Date Peritonitis 08/18/2019 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 (F LUZONE; FLULAVAL; FLUARIX; AFLURIA QUADRIVALENT; 6MO+), 0.5 ML (IIV4) 08/24/2019 Social History Tobacco Use Types Packs/Day Years Used Date Smoking Tobacco: Never Smokeless Tobacco: Never Sex and Gender Information Value Date Recorded Sex Assigned at Not on file Legal Sex Male 9:30 PM MANAGER [employer]Y Gender Identity Not on file Sexual Orientation Not on file Last Filed Vital Signs Vital Sign Reading Time Taken Comments Blood Pressure 128/82 09/20/2019 9:15 AM CDT Pulse 88 09/20/2019 9:15 AM CDT Temperature 36.9 C (98.4 F) 09/20/2019 9:15 AM CDT Respiratory Rate 21 09/20/2019 9:15 AM CDT Oxygen Saturation 95% 09/20/2019 9:15 AM CDT Inhaled Oxygen Concentration 40% 08/29/2019 9 :22 PM MANAGER HEAV[employer] D[employer]Y Weight 102.2 kg (225 lb 3.2 oz) 09/20/2019 6:11 AM CDT Height 177.8 cm (5' 10) 09/20/2019 6:11 AM CDT Body Mass Index 32.31 09/20/2019 6:11 AM CDT Plan of Treatment Health Maintenance Due Date Last Done Comments COLOGUARD (AGES 45-75) - COL ON CA SCREENING 1961 CT COLONOGRAPHY - COLON CA SCREENING 1961 FIT - COLON CA SCREENING 1961 FLEX SIG - COLON CA SCREENING 1961 HIV SCREENING 1976 DTAP/TDAP/TD VACCINES (1 - Tdap) 1980 PNEUMOCOCCAL VACCINE 50+ (1 of 1 - PCV) 2011 ZOSTER VACCINE (1 of 2) 2011 DEPRESSION SCREENING 07/10/2024 LIPID TESTING 08/13/2024 08/13/2019 COVID-19 VACCINE (1 - 2023-2 5 season) 2025 INFLUENZA VACCINE (#1) 2025 08/24/2019 COLON MONITORING 08/21/2029 08/21/2019 COLONOSCOPY - COLON CA SCREENING 08/21/2029 08/21/2019 Colorectal Cancer Screening 08/21/2029 Respiratory Syncytial Virus (RSV) Vaccine Pt: or over 60 yrs (1 - 1-dose 75+ series) 2036 HEPATITIS C SCREENING Completed 08/30/2019 , 08/30/2019, 08/23/2019 HEPATITIS B VACCINE Aged Out No longe r eligible based on patient's age to complete this topic HIB VACCINE Aged Out No longer eligi ble based on patient's age to complete this topic HPV VACCINE Aged Out No longer eligi ble based on patient's age to complete this topic MENINGOCOCCAL (Group B) VACCINE SHARED DECISION-MAKING Aged Out No longer eligible based on patient's age to complete this topic MENINGOCOCCAL GROUPS A/C/Y/W VACCINE Aged Out No longer eligible b ased on patient's age to complete this topic Procedures Procedure Name Priority Date/Time Associated Diagnosis Comments HEPATITIS SCREEN ACUTE Routine 08/30/2019 4:59 PM MANAGER HE[employer] D[employer]Y LIPID PROFILE STAT 08/13/2019 9:56 AM MANAGER [employer] from Last 3 Months or Most Recently Relevant to Health Maintenance Results * HEPATITIS SCREEN ACUTE (08/30/2019 4:59 PM MANAGER HE[employer] D[employer]Y) HAV Antibody IgM Non Reactive Non Reactive 08/31/2019 2:[address] [facility] HBsAg Non Reactive Non Reactive 08/31/2019 2:[address] [facility] HBc Antibody IgM Non Reactive Non Reactive 08/31/2019 2:[address] [facility] HCV Antibody Screen Non Reactive Non Reactive 08/31/2019 2:[address] [facility] Blood BLOOD SPECIMEN / Unknown Venipuncture / Unknown 08/30/2019 4:59 PM MANAGER [employer]Y 08/30/2019 8:25 PM MANAGER HE[employer] D[employer]Y Narrative [facility] - 08/31/2019 2:03 PM MANAGER HE[employer] D[employer]Y Non Reactive - Antibodies to Hepatitis C virus (HCV) were not detected, result does not exclude early acute HCV infection. Radha Haley MD LAB - CHEMISTRY ORDERA BLES Final Result [facility] [address] [place] [address] * (ABNORMAL) LIPID PROFILE (08/13/2019 9:56 AM [facility]) [facility] Cholesterol Total 198 <200 mg/dL 08/13/2019 10:42 AM [facility] HDL 37(L) >40 mg/dL 08/13/2019 10:42 AM [facility] Comment: ATP III Classification of HDL Cholesterol: <40 mg/dL: Considered a major risk factor. >60 mg/dL: Considered a negative risk factor. LDL Calculated 136(H) <100 mg/dL 08/13/2019 10:42 AM [facility] Comment: ATP III Classification of LDL Cholesterol: <100 mg/dL: Optimal 100 - 129 mg/dL: Near Optimal/Above Optimal 130 - 159 mg/dL: Borderline High 160 - 189 mg/dL: High >190 mg/dL: Very High Triglycerides 123 <150 mg/dL 08/13/2019 10:42 AM [facility] Comment: ATP III Classification of Triglycerides: <150 mg/dL: Normal 150 - 199 mg/dL: Borderline High 200 - 400 mg/dL: High >500 mg/dL: Very High Blood BLOOD SPECIMEN / Unknown Lab Venipuncture / Unknown 08/13/2019 9:56 AM [employer]NAGER [employer] 08/13/2019 10:20 AM MANAGER [employer] Belkys Diaz MD LAB - CHEMISTRY [place] [address], [facility] [phone] from Last 3 Months or Most Recently Relevant to Health Maintenance Insurance CIGNA CIGNA CIGNA CIGNA CIGNA Member Subscriber Plan / Payer ( fective 2019-Present) Name:Humberto Rosenthal Relation to Subscriber:Self Name:HUMBERTO ROSENTHAL Payer ID:[id number] ([facility]) Type:O Address: [address] Member Subscriber Plan / Payer ( fective 2019-Present) Name:Humberto Rosenthal Relation to Subscriber:Self Name:HUMBERTO ROSENTHAL Payer ID:[id number] ([facility]) Type:O Address: [address] Advance Directives Documents on File Type Date Recorded 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
--- NOTE | 2025-04-11 18:23 | ED_ITS ---
HPI - Ear Problem General Chief complaint: Ear Stated complaint: Right Ear Pain Time Seen by Provider: 04/11/25 18:32 Source: patient Mode of arrival: ambulatory Limitations: no limitations History of Present Illness HPI Narrative: Humberto is a 64-year-old male patient presenting to the clinic today with complaints of bilateral ear pain right greater than left x1 week. He reports has has some drainage coming from the right ear. No fevers, chills, body aches. Denies any URI symptoms. No recent swimming. Related Data Home Medications ?Medication ?Instructions ?Recorded ?Confirmed ?Last Taken ?Type aspirin 81 mg tablet,delayed 81 mg PO DAILY 12/23/19 0 01/20/25 Unknown History release (Adult Low Dose Aspirin) Allergies Allergy/AdvReac Type Severity Reaction Status Date / Time No Known Allergies Allergy Verified 04/11/25 18:21 Review of Systems Review of Systems: Pertinent positives per HPI. Patient denies any fever, chills, rash, headache, visual changes, dizziness, cough, runny nose, sore throat, shortness of breath, chest pain, palpitations, nausea, vomiting, diarrhea, constipation, abdominal pain, or any urinary issues. PENDING SALE TO [facility] Past Medical History Medical History Encounter for FIT (fecal immunochemical test) screening Gastrojejunostomy tube dislodgement Hemiparesis affecting left side as late effect of cerebrovascular accident Left-sided weakness (~11/2019) Hyperlipidemia HTN (hypertension) CVA (cerebrovascular accident) Surgical History Surgical History H/O cataract removal with insertion of prosthetic lens Status post cholecystectomy H/O hernia repair Family History Family History Father Hypertension Social History Social History Smoking status: Never smoker Second hand tobacco smoke exposure: No Alcohol intake: unknown Substance use: never Lack of Food: Never True Current Housing: I Have Housing Concerned About Future Housing: No Difficulty Paying Gas/Electric Bills: No Difficulty Paying for Meds: No Currently Unemployed: No Education: High School Diploma/GED Difficulty w/ Childcare or Family Care: No Living arrangements: with family Occupation/Education: other Additional occupation/education comments: Disabled Gender identity (if verbalized by the patient): Male Comments At the time of my signature, I reviewed and agree with the nursing past medical, surgical, social, and family history. There is no relevant family history pertinent to the patient complaint. Exam Narrative: General: Well-developed, well nourished, in no apparent distress Head: Normocephalic, atraumatic Eyes: Pupils equally round and reactive to light bilaterally, EOM intact, sclera and conjunctive clear, no discharge, lids normal Ears: TMs intact and clear, bilateral ear canal swelling/redness right greater than left with whitish brown discharge coming from the right ear, tenderness to palpation over the tragus and pulling of the pinna bilaterally, no drainage from the left, grossly hearing normal. Nose: Nares patent, no discharge, no inflammation, no sinus tenderness. Mouth: Oropharynx without lesions or masses, good dentition, MMM. Neck: Supple, trachea midline, no enlargement of anterior or posterior cervical nodes, no thyroid masses or goiter palpable. Cardio: Regular rate and rhythm, s1 and s2 normal, no murmur appreciated. Resp: Clear to auscultation bilaterally anteriorly and posteriorly, no rhonchi, rales, wheezing or rubs Course Course Emergency Course: Portions of this record may have been created with voice recognition software. Level of Care: Express Care Visit Vital Signs Vital signs: Vital Signs Temperature 36.8 C 04/11/25 18:31 Pulse Rate 69 04/11/25 18:31 Respiratory Rate 22 H 04/11/25 18:31 Blood Pressure 133/46 L 04/11/25 18:31 Pulse Oximetry 90 04/11/25 18:31 Oxygen Delivery Room Air 04/11/25 18:31 Temperature 36.8 C 04/11/25 18:31 Pulse Rate 69 04/11/25 18:31 Respiratory Rate 22 H 04/11/25 18:31 Blood Pressure 133/46 L 04/11/25 18:31 Pulse Oximetry 90 04/11/25 18:31 Oxygen Delivery Room Air 04/11/25 18:31 Vital signs reviewed Medical Decision Making MDM Narrative Medical decision making narrative: At the time of visit patient is resting comfortably on the exam table. Patient appears to be nontoxic. Complaints of bilateral ear pain right greater than left x1 week. He reports has has some drainage coming from the right ear. No fevers, chills, body aches. Denies any URI symptoms. No recent swimming. On exam patient has bilateral ear canal swelling right greater than left with discharge coming from the right ear, tender to palpation over the right tragus and pulling of the pinna, mild tenderness to palpation over the tragus and pulling of the pinna on the left. TMs intact and clear. SpO2 90% on 3 L of oxygen-patient and caregiver states that this is normal for him. Plan: I suspect patient has bilateral otitis externa right greater the left. Prescription for ofloxacin ear drops was sent to the pharmacy. Supportive measures were discussed with the patient and they voiced understanding discharge instructions and agrees to treatment plan. Return precautions reviewed Differential Diagnosis Differential Diagnosis: Otitis media, otitis externa, eustachian tube dysfunction, cerumen impaction, upper respiratory infection, serous otitis. Vital Signs Vital Signs: Vital Signs Temperature 36.8 C 04/11/25 18:31 Pulse Rate 69 04/11/25 18:31 Respiratory Rate 22 H 04/11/25 18:31 Blood Pressure 133/46 L 04/11/25 18:31 Pulse Oximetry 90 04/11/25 18:31 Oxygen Delivery Room Air 04/11/25 18:31 Temperature 36.8 C 04/11/25 18:31 Pulse Rate 69 04/11/25 18:31 Respiratory Rate 22 H 04/11/25 18:31 Blood Pressure 133/46 L 04/11/25 18:31 Pulse Oximetry 90 04/11/25 18:31 Oxygen Delivery Room Air 04/11/25 18:31 Discharge Plan Discharge Clinical Impression: Otitis externa Qualifiers: Otitis externa type: unspecified type Chronicity: acute Laterality: bilateral Qualified Code(s): H60.503 - Unspecified acute noninfective otitis externa, bilateral Patient Disposition: Home Condition: Stable Instructions: Antibiotic Form, Swimmer's Ear (ED) Additional Instructions: Take any prescribed medications only as directed-ofloxacin ear drops Tylenol/motrin as needed for pain May use heating pad to alleviate pain If you get recurrent ear infections it may be warranted to follow up with ENT. Follow up with your PCP in 3-5 days if symptoms persist. Patient Language: Venezuelan Prescriptions: New ofloxacin 0.3 % drops 5 drp otic (ear) BID 7 Days Qty: 5 0RF No Action aspirin [Adult Low Dose Aspirin] 81 mg tablet,delayed release (DR/EC) 81 mg PO DAILY fluticasone propionate [Flonase Allergy Relief] 50 mcg/actuation spray,suspension 1 spray intranasal BID Qty: 16 1RF Rx Instructions: administer into each nostril metoprolol tartrate 25 mg tablet 25 mg PO BID Qty: 180 1RF buspirone 5 mg tablet See Rx Instructions .ROUTE .COMPLEX Qty: 270 1RF Dose Instruction: TAKE 1 TABLET BY MOUTH THREE TIMES A DAY Rx Instructions: TAKE 1 TABLET BY MOUTH THREE TIMES A DAY furosemide 40 mg tablet See Rx Instructions .ROUTE .COMPLEX Qty: 90 1RF Dose Instruction: TAKE 1 TABLET BY MOUTH EVERY DAY IN THE MORNING Rx Instructions: TAKE 1 TABLET BY MOUTH EVERY DAY IN THE MORNING potassium chloride 10 mEq tablet extended release See Rx Instructions .ROUTE .COMPLEX Qty: 90 1RF Dose Instruction: TAKE 1 TABLET BY MOUTH EVERY DAY Rx Instructions: TAKE 1 TABLET BY MOUTH EVERY DAY lisinopril 40 mg tablet 40 mg PO DAILY Qty: 90 1RF amlodipine 10 mg tablet See Rx Instructions .ROUTE .COMPLEX Qty: 90 1RF Dose Instruction: TAKE 1 TABLET BY MOUTH EVERY DAY Rx Instructions: TAKE 1 TABLET BY MOUTH EVERY DAY rosuvastatin 10 mg tablet See Rx Instructions .ROUTE .COMPLEX Qty: 90 1RF Dose Instruction: 10 MG ORALLY DAILY Rx Instructions: 10 MG ORALLY DAILY venlafaxine 37.5 mg capsule,extended release 24hr See Rx Instructions .ROUTE .COMPLEX Qty: 90 1RF Dose Instruction: TAKE 1 CAPSULE BY MOUTH EVERY DAY Rx Instructions: TAKE 1 CAPSULE BY MOUTH EVERY DAY Follow-up/Referrals: Anirudh Sands MD [Primary Care Provider, Family Practice] Time of Disposition: 18:37 Quality NIHSS Nursing Documentation ED NIHSS nursing documentation: reviewed/agree
[2025-04-11 18:31] VITALS: BP 133/46; PULSE 69; RESP 22; TEMP 36.8; O2SAT 90
== END 2025-04-11 18:43 | disposition home or self-care (01) ==
PROVIDERS: Emergency Provider Nurse Practitioner Family; PCP Family Medicine
DX: H60.503 Unspecified acute noninfective otitis externa, bilateral (principal); I10 Essential (primary) hypertension; E78.5 Hyperlipidemia, unspecified; I69.354 Hemiplegia and hemiparesis following cerebral infarction affecting left non-dominant side
CPT/HCPCS: 99213; G0463